=== PATIENT | female | born 2005 | race Caucasian/White ===

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

== ENCOUNTER 2023-01-19 13:01 | Emergency (ER) | payer OTHER, SELFPAY ==
[2023-01-19 13:10] VITALS: BP 126/57; PULSE 91; RESP 14; TEMP 37; O2SAT 100
--- NOTE | 2023-01-19 13:12 | ED.DENTAL ---
HPI - Dental/Oral General Chief complaint: Dental/Oral Stated complaint: LEFT SIDE BACK TOOTH PAIN Source: patient and RN notes reviewed History of Present Illness HPI Narrative: 17-year-old female presents to urgent care with complaints of left lower dental pain x3 days. Patient reports painful swallowing. Denies any fevers, chills, vomiting, chest pain, shortness of breath. Patient states she has a dentist that she is getting into next week. Some parts of this dictation were generated by voice recognition software and may contain typographical and/or grammatical inaccuracies. Related Data Home Medications Medication Instructions Recorded Confirmed medroxyprogesterone 150 mg/mL 150 mg IM [id number] 01/19/23 01/19/23 intramuscular syringe Allergies Allergy/AdvReac Type Severity Reaction Status Date / Time No Known Allergies Allergy Verified 01/19/23 13:19 Review of Systems Review of Systems: Pertinent positives and pertinent negatives per HPI. PMFSH Comments At the time of my signature, I reviewed and agree with the nursing past medical, surgical, social, and family history. There is no relevant family history pertinent to the patient complaint. Exam Narrative: GENERAL: This is a well-nourished, well-developed patient, in no apparent distress. HEAD: normocephalic, atraumatic. EYES: Sclera clear/white. Vision is grossly intact. EARS: External ears normal, auditory canals clear and without drainage. Hearing grossly intact. NOSE: External nose normal with no obvious nasal discharge, nares without redness, no rhinorrhea. THROAT: Mucous membranes moist, posterior pharynx clear. MOUTH: Tooth #17 appears to be impacted with surrounding swelling gums. no exudate noted. NECK: Neck supple, non-tender without lymphadenopathy, masses or thyromegaly. CARDIOVASCULAR: Regular rate RESPIRATORY: No respiratory distress SKIN: warm, intact with no suspicious lesions or rash, good texture and turgor. NEURO: awake, alert, and oriented to person, place and time. There were no obvious focal neurologic abnormalities. Course Course Level of Care: Express Care Visit Vital Signs Vital signs: Vital Signs Temperature 98.6 F 01/19/23 13:10 Pulse Rate 91 01/19/23 13:10 Respiratory Rate 14 01/19/23 13:10 Blood Pressure 126/57 L 01/19/23 13:10 Pulse Oximetry 100 06/23/23 13:10 Oxygen Delivery Room Air 01/19/23 13:10 Temperature 98.6 F 01/19/23 13:20 Pulse Rate 91 01/19/23 13:20 Respiratory Rate 14 01/19/23 13:20 Blood Pressure 126/57 L 01/19/23 13:20 Pulse Oximetry 100 01/19/23 13:20 Oxygen Delivery Room Air 01/19/23 13:20 Reviewed MDM - Dental/Oral MDM Narrative Medical decision making narrative: Take antibiotic until it's gone. Brushing teeth at least twice daily with gentle flossing. Avoid temperature extremes when you eat. Salt gargle to rinse your mouth after every meal You may apply ice to the face to reduce pain/swelling. For pain, you may take: Tylenol 650-1000mg by mouth every 4-6 hours. Do not exceed 4000mg in 24 hours. Advil (Ibuprofen) 600 mg by mouth every 6 hours. Do not exceed 2400mg in 24 hours. Also, recommend regular dental check up one-two times a year to prevent tooth decay and other periodontal disease. Follow-up with the dentist as soon as possible. See the list provided Differential Diagnosis Differential diagnosis: Likely gingival abscess, dental caries and dental abscess Critical Care Time Critical Care Time Critical Care Time: No Discharge Plan Discharge Clinical Impression: Dental abscess Patient Disposition: Home, Self-Care Condition: Stable Instructions: Antibiotic Form, Dental Abscess (ED) Additional Instructions: Take antibiotic until it's gone. Brushing teeth at least twice daily with gentle flossing. Avoid temperature extremes when you eat. Salt gargle to rinse your mouth after every meal You may mikayla
[2023-01-19 13:20] VITALS: BP 126/57; PULSE 91; RESP 14; TEMP 37; O2SAT 100
== END 2023-01-19 13:25 | disposition home or self-care (01) ==
PROVIDERS: Emergency Provider Nurse Practitioner Family; PCP Family Medicine
DX: K04.7 Periapical abscess without sinus (principal)
CPT/HCPCS: 99203; G0463

== ENCOUNTER 2023-10-01 19:10 | Emergency (ER) | payer OTHER, SELFPAY ==
[2023-10-01 19:15] VITALS: BP 116/72; PULSE 147; RESP 18; TEMP 39; O2SAT 100
[2023-10-01 19:29] VITALS: TEMP 39
[2023-10-01] MEDS: IBUPROFEN 600 MG TABLET PO (19:29)
--- NOTE | 2023-10-01 19:55 | ED.URI ---
HPI - URI/Sore Throat General Chief Complaint: Upper Respiratory Infection Stated Complaint: headache/congestion/aches Time Seen by Provider: 10/01/23 19:47 Source: patient and RN notes reviewed Mode of arrival: ambulatory Limitations: no limitations History of Present Illness HPI Narrative: Patient presents today complaining of fever up to 101, nasal congestion, chills, body aches since last night. Currently rates her pain 7/10 and has tried DayQuil and ibuprofen with some mild relief. Denies known sick contacts. Related Data Home Medications Medication Instructions Recorded Confirmed etonogestrel 68 mg subdermal 1 implant subdermal ONCE 10/01/23 10/01/23 implant (Nexplanon) Allergies Allergy/AdvReac Type Severity Reaction Status Date / Time No Known Allergies Allergy Verified 01/19/23 13:19 Review of Systems Review of Systems: CONSTITUTIONAL: Denies sweats.+ body aches, chills, fever EYES: Denies visual changes, redness, or discharge. ENT: Denies rhinorrhea, sore throat, or otalgia.+ congestion CARDIOVASCULAR: Denies chest pain, palpitations, or edema. RESPIRATORY: Denies cough or dyspnea. GASTROINTESTINAL: Denies abdominal pain, nausea, vomiting, or diarrhea. GENITOURINARY: Denies dysuria or hematuria. SKIN: Denies rash, itching, or wounds. MUSCULOSKELETAL: Denies back pain, joint pain, or myalgia. NEUROLOGIC: Denies headache, numbness, tingling, or weakness. PSYCH: Denies depression or anxiety. PMFSH Comments At time of signature, I have reviewed and agree with nursing past medical, surgical, social and family history unless otherwise noted. Please see nursing chart for further information. There is no relevant family history pertinent to the presenting complaint Exam Narrative: GENERAL: Mildly ill-appearing, well-nourished, and in no acute distress. HEAD: Normocephalic, atraumatic. EYES: EOMI. No redness or drainage. Conjunctivae normal. ENT: Mucous membranes pink and moist. Nares congested. No rhinorrhea. TMs normal bilaterally. Throat normal. Uvula midline. NECK: Normal AROM. Supple. No lymphadenopathy. CHEST: No respiratory distress. Clear to auscultation. HEART: Regular rate and rhythm. No murmur appreciated. EXTREMITIES: Normal range of motion. No edema. SKIN: Warm, no rash. Capillary refill normal. Normal skin turgor. Diaphoretic NEURO: No focal deficits. Alert and oriented x3. Gait steady. PSYCH: Normal affect. No signs of depression or anxiety. Course Course Level of Care: Express Care Visit Vital Signs Vital signs: Vital Signs Temperature 102.2 F H 10/01/23 19:15 Pulse Rate 147 H 10/01/23 19:15 Respiratory Rate 18 10/01/23 19:15 Blood Pressure 116/72 10/01/23 19:15 Pulse Oximetry 100 10/01/23 19:15 Oxygen Delivery Room Air 10/01/23 19:15 Temperature 102.2 F H 10/01/23 19:29 Pulse Rate 147 H 10/01/23 19:15 Respiratory Rate 18 10/01/23 19:15 Blood Pressure 116/72 10/01/23 19:15 Pulse Oximetry 100 10/01/23 19:15 Oxygen Delivery Room Air 10/01/23 19:15 Reviewed. Patient given dose of ibuprofen during visit. MDM - URI/Sore Throat MDM Narrative Medical decision making narrative: Testing negative. Symptoms likely viral in etiology. Discussed [id number] medication use and duration of illness. No prescription medications indicated at this time. Anticipatory guidance given. Differential Diagnosis Differential diagnosis: Likely upper respiratory infection, viral infection, influenza and other (Strep throat, COVID) Lab Data Attestation: I reviewed the patient's lab results. Labs: Lab Results 10/01/23 Range/Units 19:24 POC SARS CoV-2 Ag Negative (Negative) Influenza A Screen Negative Reference Range: Negative Influenza B Screen Negative Reference Range: Negative Strep Screen
[2023-10-01 20:00] VITALS: TEMP 37.9
== END 2023-10-01 20:00 | disposition home or self-care (01) ==
PROVIDERS: Emergency Provider Nurse Practitioner; PCP Family Medicine
DX: B34.9 Viral infection, unspecified (principal); Z20.822 Contact with and (suspected) exposure to COVID-19
CPT/HCPCS: 87081; 87426; 87804; 87880; 99213; A9270; G0463

== ENCOUNTER 2023-10-26 18:37 | Emergency (ER) | payer OTHER, SELFPAY ==
[2023-10-26 18:47] VITALS: BP 137/71; PULSE 119; RESP 16; TEMP 37.6; O2SAT 100
--- NOTE | 2023-10-26 19:20 | ED.EAR ---
HPI - Ear Problem General Chief complaint: Ear Stated complaint: ears Time Seen by Provider: 10/26/23 19:10 Source: patient, RN notes reviewed and old records reviewed Mode of arrival: ambulatory Limitations: no limitations History of Present Illness HPI Narrative: 18 year old female who presents to [facility] care with complaints of ear pain bilaterally with left worse, fevers, slight cough with some runny nose and mild headache, sore throat for the past 4 days. Patient reports that she did do home COVID test which was negative. Patient reports that she has been taking Ibuprofen and also Zyrtec for her symptoms. Patient reports that son has had ear infection but no other ill contacts. Patient reports past history of tonsillectomy. MD Complaint: ear pain and other (fevers, cough and runny nose, mild headache) Location: bilateral Duration: constant Severity: moderate Discharge from ear: Reports no Associated symptoms ear: fever, headache, rhinorrhea and other (ear pain) Treatment prior to arrival: oral analgesic and other (Zyrtec) Related Data Home Medications Medication Instructions Recorded Confirmed etonogestrel 68 mg subdermal 1 implant subdermal ONCE 10/01/23 10/01/23 implant (Nexplanon) Allergies Allergy/AdvReac Type Severity Reaction Status Date / Time No Known Allergies Allergy Verified 01/19/23 13:19 Review of Systems Review of Systems: CONSTITUTIONAL: Reports malaise, chills, sweats, or fever. EYES: Denies visual changes, redness, or discharge. ENT: Reports rhinorrhea, congestion,no sinus pain, bilateral otalgia and some sore throat. CARDIOVASCULAR: Denies chest pain, palpitations, or edema. RESPIRATORY: Reports cough.? Denies dyspnea. GASTROINTESTINAL: Denies abdominal pain, nausea, vomiting, diarrhea SKIN: Denies rash or itching. MUSCULOSKELETAL: Denies myalgia. NEUROLOGIC: reports mild headache. All systems reviewed & are unremarkable except as noted in HPI and below PMFSH Surgical History Surgical History (Updated 10/26/23 @ 19:58 by Ashanti Rob NP) Hx of tonsillectomy Comments At time of signature, agree with nursing past medical, surgical, social and family history. There is no relevant family history pertinent to the presenting complaint Exam Narrative: GENERAL: Well-appearing, well-nourished, and in no acute distress. HEAD: Normocephalic EYES: PERRLA, conjunctivae clear ENT: Nares clear, turbinates edematous and erythematous, clear discharge. Mucous membranes moist. Left TM red and bulging, Right TM pearly bell with dull light reflex; no tragal tenderness. Oropharynx erythematous without lesions. Tonsils not present and throat without exudate, no drooling, no hoarseness, no trismus, uvula midline.post nasal drainage NECK: Supple. No lymphadenopathy CHEST: Clear to auscultation, breath sounds equal. No wheezing, rhonchi, rales, or stridor. No respiratory distress, speaks in full sentences.SAO2 100% on room air HEART: Regular rate and rhythm. No murmur heard. SKIN: Warm, dry, no rash. NEURO: Alert and oriented x3. PSYCH: Normal mood and affect Course Course Emergency Course: Patient is aware of diagnosis, understands and agrees to treatment plan.? Anticipatory guidance given.? Patient agrees to follow-up as directed and is aware of reasons to seek care at the emergency department. Portions of this record may have been created with voice recognition software Level of Care: Express Care Visit Vital Signs Vital signs: Vital Signs Temperature 37.6 C H 10/26/23 18:47 Pulse Rate 119 H 10/26/23 18:47 Respiratory Rate 16 10/26/23 18:47 Blood Pressure 137/71 10/26/23 18:47 Pulse Oximetry 100 10/26/23 18:47 Oxygen Delivery Room Air 10/26/23 18:47 Temperature 37.6 C H 10/26/23 18:47 Pulse Rate 119 H 10/26/23 18:47 Respiratory Rate 16 10/26/23 18:47 Blood Pressure 137/71 10/26/23 18:47 Pulse Oximetry 100
== END 2023-10-26 19:38 | disposition home or self-care (01) ==
PROVIDERS: Emergency Provider Registered Nurse; PCP Family Medicine
DX: H65.02 Acute serous otitis media, left ear (principal)
CPT/HCPCS: 99213; G0463